=== PATIENT | male | born 1970 | race Caucasian/White ===

== ENCOUNTER → 2016-11-19 | Outpatient (CLI) | payer OTHER ==
--- NOTE | 2016-11-19 11:15 | DIAGNOSTIC IMAGING REPORT ---
PA CHEST WITH RIGHT-SIDED RIB SERIES CLINICAL HISTORY: Fall with right chest wall pain. FINDINGS: 2 PA chest radiographs with 4 additional views may right-sided rib series are obtained. No prior studies are available for comparison at the time of dictation. The cardiomediastinal silhouette is unremarkable. Nonspecific interstitial thickening is noted. The lungs and pleural spaces are clear. No pneumothorax is seen. There is no radiographic evidence of acute/distracted right-sided rib fracture on the rib series. The remainder of the bony thorax is grossly intact. There is mild S-shaped thoracolumbar scoliosis. IMPRESSION: 1. The lungs are clear. 2. There is no radiographic evidence of right-sided rib fracture on the rib series. Electronically signed by: Curtis aSha M.D. 11/19/2016 11:14 AM Dictated Date/Time: 11/19/2016 11:13 AM
== END | disposition home or self-care (01) ==
LOC: C.RAD1850 10:12
PROVIDERS: ATTEND Family Medicine
DX: R07.81 Pleurodynia (principal)